=== PATIENT | female | born 1975 | race Two or more races ===

== ENCOUNTER 2022-08-25 12:22 | Emergency (ER) | payer OTHER ==
[~2022-08-25] VITALS: Ht 175.3 cm; Wt 83.5 kg
[2022-08-25] MEDS ORDERED: CIPRO500 MG PO (12:44)
== END 2022-08-25 15:04 | disposition home or self-care (01) ==
LOC: ER 12:22
DX: L02.31 Cutaneous abscess of buttock (principal)

== ENCOUNTER 2022-11-20 16:14 | Emergency (ER) | payer OTHER ==
[~2022-11-20] VITALS: Ht 175.3 cm; Wt 81.6 kg
[~2022-11-20 16:14] MED LIST: CIPRO500 MG PO
== END 2022-11-20 21:24 | disposition home or self-care (01) ==
LOC: ER 16:14
DX: L03.317 Cellulitis of buttock (principal); L02.31 Cutaneous abscess of buttock